=== PATIENT | male | born 1945 | race Caucasian/White ===

== ENCOUNTER → 2017-09-07 | Day surgery (SDC) | payer MEDICARE, BC ==
[~2017-09-07] MED LIST: Dextrose 5%-Lactated Ringers 1,000 ML IV SCH; Glycopyrrolate 0.2 MG/ML 2 ML SDV IVPUSH ONE; Propofol 200 MG/20 ML SDV ONE; cefOXitin 2 GM in Premix Bag 1 BAG IV ONE; fentaNYL 100 MCG/2 ML SDV ONE
--- NOTE | 2017-09-15 13:00 | OR ---
DATE OF PROCEDURE: 09/07/2017 PREOPERATIVE DIAGNOSES: 1. Epigastric discomfort. 2. Lower abdominal pain with recent onset of frequent loose bowel movements. POSTOPERATIVE DIAGNOSES: 1. Minimal antral gastritis. 2. Colon involved with varghese-diverticulosis. 3. Initial microbiologic workup with stool positive for Clostridium difficile enterotoxin. OPERATIVE PROCEDURES: 1. Esophagogastroduodenoscopy with biopsies of antrum for CLOtest. 2. Flexible colonoscopy with random colorectal biopsies along with collection of stool for culture and sensitivity, and Clostridium difficile enterotoxin assay. ANESTHESIA: IV sedation. INDICATION FOR PROCEDURE: The patient presents with the above findings. He is recently status post a hip replacement. The plan is to proceed with upper and lower endoscopy with biopsies as indicated. If the colonoscopy fails to show any specific abnormalities, we would obtain more or less random colorectal biopsies to rule out microscopic colitis and with the recent antibiotic use, we will obtain stool cultures as well along with the C. difficile enterotoxin assay. Potential risks of the procedure including bleeding and perforation were discussed, and the patient wishes to proceed. DETAILS OF PROCEDURE: The patient was taken to the operating room and placed in the left lateral decubitus position. IV sedation was administered, after which the upper GI endoscope was passed orally through the length of the esophagus and the stomach with retroflexion view of the fundus, thereafter through the pyloric channel, and into the proximal duodenum. Findings included normal hypopharynx, larynx, upper esophageal sphincter, and esophageal body. At the EG junction, no significant hiatal hernia or inflammation was present. Within the stomach, there was minimal antral gastritis, but otherwise unremarkable. No erosions or ulcers could be noted. The pyloric channel, duodenal junction of the third and fourth portions were unremarkable. Biopsies were obtained from the antrum and sent for CLOtest for H. pylori. Minimal bleeding from the biopsy sites was seen, and the gastroscope was then withdrawn and that phase of the procedure concluded. Attention was taken to the colonoscopy. Initial digital rectal exam was performed, which was unremarkable. The colonoscope was then passed into the rectum with retroflexion revealing uncomplicated hemorrhoidal columns. The scope was eventually passed to the level of the cecum. The prep was fairly good. There was small amount of liquid stool present. Otherwise, there were no areas of colitis, obviously, present and no polyps or other signs of tumor. The patient did have, otherwise, uncomplicated varghese-diverticulosis with the diverticulum to be prevalent on the left colon. Throughout the procedure, stool was aspirated and sent for C and S as well as C. difficile enterotoxin assay. As the scope was withdrawn, multiple random biopsies of the colorectum obtained to rule out microscopic colitis. Minimal bleeding from the biopsy sites was seen and the procedure concluded. The patient was taken to the recovery room in a satisfactory condition. The patient was reported to have a positive C. difficile test in the immediate postoperative period and was started therefore on vancomycin 200 mg t.i.d. x2 weeks. He will be following up with Dr. Whalen. Seferino Sadler MD /[id number]
== END ==
LOC: JP.SDS 06:17
PROVIDERS: ATTEND Surgery
DX: K29.50 Unspecified chronic gastritis without bleeding (principal); B96.89 Other specified bacterial agents as the cause of diseases classified elsewhere; K57.30 Diverticulosis of large intestine without perforation or abscess without bleeding
CPT/HCPCS: 43239; 45380; 87046; 87081; 87177; 87209; 87493; 87899; 88305; 89055; J0694; J2704; J3010; J7042; J3490

== ENCOUNTER 2024-01-01 11:07 | Observation (INO) | payer MEDICARE, BC ==
[2024-01-01] MEDS ORDERED: Sodium Chloride 0.9% 10 ML Syringe FLUSH PRN ×2 (13:26→17:29)
[2024-01-01 13:39] LABS: BASOPHILS ABSOLUTE AUTO 0.05 K/uL (0.00-0.10); EOSINOPHILS ABSOLUTE AUTO 0.05 K/uL (0.00-0.40); HEMATOCRIT 44.5 % (38.4-49.7); IMMATURE GRAN PERCENT AUTO 0.2 % (0.0-0.7); LYMPHOCYTES ABSOLUTE AUTO 1.39 K/uL (0.8-3.3); LYMPHOCYTES PERCENT AUTO 26.6 % (11.4-47.7); MEAN CORPUSCULAR HEMOGLOBIN 28.9 pg (31.6-35.5); MEAN CORPUSCULAR HGB CONC 33.7 g/dL (31.6-35.5); MEAN CORPUSCULAR VOLUME 85.7 fL (81.4-99.0); MONOCYTES ABSOLUTE AUTO 0.54 K/uL (0.20-0.90); MONOCYTES PERCENT AUTO 10.3 % (3.3-12.6); NEUTROPHILS ABSOLUTE AUTO 3.19 K/uL (1.0-7.6); NEUTROPHILS PERCENT AUTO 60.9 % (40.0-78.1); PLATELET COUNT,PLT 207 K/uL (130-375); RED BLOOD CELL COUNT 5.19 M/uL (4.14-5.76); WHITE BLOOD CELL COUNT,WBC 5.2 K/uL (3.2-11.0)
[2024-01-01 13:41] LABS: IMMATURE GRAN ABSOLUTE AUTO 0.01 K/uL (0.00-0.23)
[2024-01-01] MEDS: Diltiazem 25 MG/5 ML SDV IVPUSH ONE (13:55)
[2024-01-01 14:03] LABS: A/G RATIO 1.1 (1.2-2.2); ALANINE AMINOTRANSFERASE,ALT 20 U/L (12-78); ALBUMIN 3.5 g/dL (3.4-5.0); ALKALINE PHOSPHATASE 106 U/L (46-116); ANION GAP 6.8 mmol/L (5.0-14.0); ASPARTATE AMNIOTRANSFERASE,AST 20 U/L (15-37); BILIRUBIN TOTAL 0.9 mg/dL (0.2-1.0); BLOOD UREA NITROGEN,BUN 21 mg/dL (7-18); CALCIUM 9.2 mg/dL (8.5-10.1); CARBON DIOXIDE,CO2 29 mmol/L (21-32); CHLORIDE,CL 105 mmol/L (100-108); CREATININE 1.2 mg/dL (0.8-1.3); EST CRCL DRUG DOSING (CG) 51.55 mL/min; ESTIMATED GFR 62 mL/min (>60); GLUCOSE RANDOM 99 mg/dL (74-106); MAGNESIUM 1.9 mg/dL (1.8-2.4); POTASSIUM,K 4.3 mmol/L (3.6-5.2); PROTEIN TOTAL,TP 6.8 g/dL (6.4-8.2); SODIUM,NA 141 mmol/L (140-148); TROPONIN I HIGH SENSITIVITY 24.7 pg/mL (<=60.3)
[2024-01-01] MEDS: Sodium Chloride 0.9% 1,000 ML IV SCH (15:25)
[2024-01-01] MEDS: Diltiazem 100 MG in Sodium Chloride 0.9% 100 ML IV SCH (16:11)
[2024-01-01] MEDS ORDERED: Polyethylene Glycol 3350 Powder 17 GM Packet PO PRN (17:29)
[2024-01-01] MEDS ORDERED: Ondansetron 4 MG/2 ML SDV IV PRN (17:29)
[2024-01-01] MEDS ORDERED: Acetaminophen 325 MG Tab PO PRN (17:29)
[2024-01-01] MEDS: Diltiazem IR 30 MG Tab PO SCH (17:50)
[2024-01-01 20:09] LABS: CORONAVIRUS COVID-19 NAA NEGATIVE (NEGATIVE); INFLUENZA A NAA NEGATIVE (NEGATIVE); INFLUENZA B NAA NEGATIVE (NEGATIVE); RESPIRATORY SYNCYTIAL VIR NAA NEGATIVE (NEGATIVE)
[2024-01-01] MEDS: Latanoprost 0.005% Ophth Soln 2.5 ML Bottle EYEBOTH SCH (20:32)
[2024-01-01] MEDS: Enoxaparin 40 MG/0.4 ML Syringe SUBCUT SCH (21:32)
[2024-01-02] MEDS: Sodium Chloride 0.9% 500 ML IV ONE (06:49)
[2024-01-02] MEDS: Diltiazem IR 30 MG Tab PO SCH (08:14)
[2024-01-02] MEDS ORDERED: Timolol Maleate 0.5% Ophth Soln 5 ML Bottle EYERT SCH (09:00)
[2024-01-02] MEDS ORDERED: Tamsulosin 0.4 MG Cap.ER PO SCH ×2 (09:00→21:00)
[2024-01-02] MEDS: TIMOLOL MALEATE 0.5% EYERT SCH (09:07)
[2024-01-02] MEDS: Apixaban 5 MG Tab PO SCH (10:56)
[2024-01-02] MEDS ORDERED: Diltiazem IR 30 MG Tab PO SCH (14:00)
[2024-01-02 14:06] VITALS: BP 116/65; PULSE 62
[2024-01-02] MEDS ORDERED: LATANOPROST 0.005% EYEBOTH SCH (21:00)
== END 2024-01-02 15:15 | disposition home or self-care (01) ==
LOC: JP.ED 11:07 → JP.ICU 16:51
PROVIDERS: ADMIT Hospitalist; ATTEND Hospitalist
DX: I48.91 Unspecified atrial fibrillation (principal); R42 Dizziness and giddiness; R53.1 Weakness; R00.2 Palpitations; R06.02 Shortness of breath; Z20.822 Contact with and (suspected) exposure to COVID-19; Z79.899 Other long term (current) drug therapy
CPT/HCPCS: 0241U; 36415; 71045; 80053; 83735; 84443; 84484; 85025; 93005; 99222; 99238; A9270; J1650; J3490; J7030; 96372; G0378

== ENCOUNTER 2024-05-24 14:08 | Emergency (ER) | payer MEDICARE, BC ==
[2024-05-24 14:50] LABS: BASOPHILS ABSOLUTE AUTO 0.04 K/uL (0.00-0.10); BASOPHILS PERCENT AUTO 0.8 % (0.1-1.3); EOSINOPHILS ABSOLUTE AUTO 0.07 K/uL (0.00-0.40); EOSINOPHILS PERCENT AUTO 1.5 % (0.0-5.4); HEMATOCRIT 39.6 % (38.4-49.7); HEMOGLOBIN 13.8 g/dL (12.9-16.9); IMMATURE GRAN PERCENT AUTO 0.2 % (0.0-0.7); LYMPHOCYTES ABSOLUTE AUTO 1.11 K/uL (0.8-3.3); LYMPHOCYTES PERCENT AUTO 23.6 % (11.4-47.7); MEAN CORPUSCULAR HEMOGLOBIN 29.1 pg (31.6-35.5); MEAN CORPUSCULAR HGB CONC 34.8 g/dL (31.6-35.5); MEAN CORPUSCULAR VOLUME 83.4 fL (81.4-99.0); MONOCYTES ABSOLUTE AUTO 0.52 K/uL (0.20-0.90); NEUTROPHILS ABSOLUTE AUTO 2.96 K/uL (1.0-7.6); NEUTROPHILS PERCENT AUTO 62.9 % (40.0-78.1); PLATELET COUNT,PLT 199 K/uL (130-375); RED BLOOD CELL COUNT 4.75 M/uL (4.14-5.76); WHITE BLOOD CELL COUNT,WBC 4.7 K/uL (3.2-11.0)
[2024-05-24] MEDS: Sodium Chloride 0.9% 10 ML Syringe FLUSH PRN (14:50)
[2024-05-24] MEDS: Sodium Chloride 0.9% 1,000 ML IV ONE (14:50)
[2024-05-24 14:52] LABS: IMMATURE GRAN ABSOLUTE AUTO 0.01 K/uL (0.00-0.23)
[2024-05-24 15:13] LABS: BLOOD UREA NITROGEN,BUN 16 mg/dL (7-18); CALCIUM 9.5 mg/dL (8.5-10.1); CARBON DIOXIDE,CO2 28 mmol/L (21-32); CHLORIDE,CL 104 mmol/L (100-108); CREATININE 1.3 mg/dL (0.8-1.3); EST CRCL DRUG DOSING (CG) 46.83 mL/min; ESTIMATED GFR 56 mL/min (>60); GLUCOSE RANDOM 128 mg/dL (74-106); SODIUM,NA 138 mmol/L (140-148); TROPONIN I HIGH SENSITIVITY < 4.0 pg/mL (<=60.3)
[2024-05-24 15:22] VITALS: BP 133/63; PULSE 64
== END 2024-05-24 16:28 | disposition home or self-care (01) ==
LOC: JP.ED 14:08
DX: S00.83XA Contusion of other part of head, initial encounter (principal); R55 Syncope and collapse; Z79.899 Other long term (current) drug therapy; Z86.16 Personal history of COVID-19; W22.8XXA Striking against or struck by other objects, initial encounter
CPT/HCPCS: 36415; 70450; 70486; 72125; 76377; 80048; 84484; 85025; 93005; 96360; 96361; 99284; J3490; J7030; 93010

== ENCOUNTER 2024-05-27 10:14 | Emergency (ER) | payer MEDICARE, BC ==
[2024-05-27 11:21] LABS: BASOPHILS ABSOLUTE AUTO 0.04 K/uL (0.00-0.10); BASOPHILS PERCENT AUTO 0.7 % (0.1-1.3); EOSINOPHILS ABSOLUTE AUTO 0.09 K/uL (0.00-0.40); EOSINOPHILS PERCENT AUTO 1.6 % (0.0-5.4); HEMATOCRIT 39.5 % (38.4-49.7); HEMOGLOBIN 13.6 g/dL (12.9-16.9); IMMATURE GRAN ABSOLUTE AUTO 0.02 K/uL (0.00-0.23); IMMATURE GRAN PERCENT AUTO 0.4 % (0.0-0.7); LYMPHOCYTES PERCENT AUTO 10.9 % (11.4-47.7); MEAN CORPUSCULAR HEMOGLOBIN 28.9 pg (31.6-35.5); MEAN CORPUSCULAR HGB CONC 34.4 g/dL (31.6-35.5); MEAN CORPUSCULAR VOLUME 83.9 fL (81.4-99.0); MONOCYTES ABSOLUTE AUTO 0.67 K/uL (0.20-0.90); MONOCYTES PERCENT AUTO 12.2 % (3.3-12.6); NEUTROPHILS ABSOLUTE AUTO 4.06 K/uL (1.0-7.6); NEUTROPHILS PERCENT AUTO 74.2 % (40.0-78.1); PLATELET COUNT,PLT 169 K/uL (130-375); RED BLOOD CELL COUNT 4.71 M/uL (4.14-5.76); WHITE BLOOD CELL COUNT,WBC 5.5 K/uL (3.2-11.0)
[2024-05-27 11:44] LABS: BLOOD UREA NITROGEN,BUN 17 mg/dL (7-18); CALCIUM 9.2 mg/dL (8.5-10.1); CARBON DIOXIDE,CO2 28 mmol/L (21-32); CHLORIDE,CL 102 mmol/L (100-108); CREATININE 1.3 mg/dL (0.8-1.3); EST CRCL DRUG DOSING (CG) 46.83 mL/min; ESTIMATED GFR 56 mL/min (>60); GLUCOSE RANDOM 100 mg/dL (74-106); POTASSIUM,K 4.2 mmol/L (3.6-5.2); SODIUM,NA 139 mmol/L (140-148)
[2024-05-27 11:46] LABS: ANION GAP 13.2 mmol/L (5.0-14.0); TROPONIN I HIGH SENSITIVITY < 4.0 pg/mL (<=60.3)
[2024-05-27 12:30] VITALS: BP 148/92; PULSE 67
== END 2024-05-27 12:25 | disposition home or self-care (01) ==
LOC: JP.ED 10:14
DX: R55 Syncope and collapse (principal); Z86.16 Personal history of COVID-19; Z79.899 Other long term (current) drug therapy
CPT/HCPCS: 36415; 80048; 83605; 84484; 85025; 99284

== ENCOUNTER 2024-05-29 07:32 | Emergency (ER) | payer MEDICARE, BC ==
[2024-05-29 09:21] VITALS: BP 128/87; PULSE 66
== END 2024-05-29 09:19 | disposition home or self-care (01) ==
LOC: JP.ED 07:32
DX: I48.0 Paroxysmal atrial fibrillation (principal); Z86.16 Personal history of COVID-19; Z79.899 Other long term (current) drug therapy
CPT/HCPCS: 99284

== ENCOUNTER 2024-06-17 05:18 | Emergency (ER) | payer MEDICARE, BC ==
[2024-06-17 05:56] VITALS: BP 142/94; PULSE 113
== END 2024-06-17 06:09 | disposition home or self-care (01) ==
LOC: JP.ED 05:18
DX: I48.91 Unspecified atrial fibrillation (principal); Z86.16 Personal history of COVID-19; Z79.899 Other long term (current) drug therapy
CPT/HCPCS: 99284

== ENCOUNTER 2024-06-18 04:06 | Emergency (ER) | payer MEDICARE, BC ==
[2024-06-18 07:10] VITALS: BP 98/48; PULSE 87
== END 2024-06-18 07:14 | disposition home or self-care (01) ==
LOC: JP.ED 04:06
DX: I48.0 Paroxysmal atrial fibrillation (principal); Z79.899 Other long term (current) drug therapy
CPT/HCPCS: 93005; 93010; 99284

== ENCOUNTER 2025-06-15 06:15 | Emergency (ER) | payer MEDICARE, BC ==
[2025-06-15 06:24] VITALS: BP 145/97; PULSE 89
== END 2025-06-15 07:43 | disposition home or self-care (01) ==
LOC: JP.ED 06:15
DX: I48.0 Paroxysmal atrial fibrillation (principal); K59.00 Constipation, unspecified; Z79.01 Long term (current) use of anticoagulants; Z79.890 Hormone replacement therapy; Z79.899 Other long term (current) drug therapy
CPT/HCPCS: 93005; 99284